=== PATIENT | female | born 1980 | race Caucasian/White ===

== ENCOUNTER 2017-03-16 17:06 | Emergency (ER) | payer BC ==
[~2017-03-16 17:06] MED LIST: Iopamidol 370 76% 100 ML VIAL ONE
[2017-03-16] MEDS ORDERED: Morphine 4 MG/ML Carpuject ONE (18:05)
[2017-03-16] MEDS ORDERED: Ondansetron HCl/PF 4 MG/2 ML Vial ONE ×2 (18:06→19:17)
[2017-03-16 18:08] LABS: #Basophils 0.1 thou/uL (0.0-0.2); #Eosinphils 0.1 thou/uL (0.0-0.7); #Lymphocytes 1.8 thou/uL (1.20-3.40); #Monocytes 0.5 thou/uL (0.11-0.59); #Neutrophils 3.2 thou/uL (1.40-6.50); %Basophils 1.5 % (0.0-1.0); %Eosinophils 2.5 % (0.0-10.0); %Lymphocytes 31.3 % (21.0-51.0); %Monocytes 9.3 % (0.0-10.0); Hematocrit 39.6 % (36.0-47.0); Mean Platelet Volume 10.9 fL (7.4-10.4); Red Blood Cell (RBC) Count 4.45 mill/uL (4.20-5.40); White Blood Cell (WBC) Count 5.7 thou/uL (4.8-10.8)
[2017-03-16 18:16] LABS: Bilirubin Negative (Negative); Blood, Urine Negative (Negative); Glucose, Urine (Dipstick) Negative (Negative); Ketone, Urine Negative (Negative); Nitrite Negative (Negative); PTT 28.7 SEC (22.9-36.1); Protein, Urine (Dipstick) Negative (Neg-Trace); Prothrombin Time 13.2 SEC (12.0-14.7)
[2017-03-16 18:26] LABS: ALT (SGPT) 16 U/L (8-55); AST (SGOT) 14 U/L (5-34); Alkaline Phosphatase 74 U/L (40-150); Anion Gap 13 mmol/L (10-20); BUN (Urea Nitrogen) 17 mg/dL (7.0-18.7); Bilirubin, Total 0.4 mg/dL (0.2-1.2); Calc. Creatinine Clearance 0 mL/min (70-130); Calcium 9.8 mg/dL (7.8-10.44); Carbon Dioxide 25 mmol/L (22-29); Chloride 103 mmol/L (98-107); Estimated GFR-MDRD 72; Globulin 3.9 g/dL (2.4-3.5); Lipase 25 U/L (8-78); Protein, Total 8.2 g/dL (6.0-8.3)
[2017-03-16] MEDS ORDERED: Sodium Chloride 0.9% 100 ML ONE (19:04)
[2017-03-16] MEDS ORDERED: Piperacillin/Tazobactam 3.375 GM VIAL ONE (19:04)
[2017-03-16] MEDS ORDERED: Promethazine HCl 25 MG/ML VIAL ONE (20:46)
--- NOTE | 2017-03-16 22:34 | CT ---
CT ABDOMEN AND PELVIS WITH CONTRAST 03/16/17 COMPARISON: None. HISTORY: Generalized pelvic pain and right lower quadrant abdominal pain for eight days with nausea, vomiting and hematuria last week. TECHNIQUE: Multiple contiguous axial images were obtained in a CT of the abdomen and pelvis with contrast. PO co ntrast was administered. Coronal reformats were performed. FINDINGS: The liver, gallbladder, kidneys, adrenal glands, spleen, and pancreas are unremarkable. No free air, free fluid, or stranding changes are seen in the abdomen or pelvis. The uterus appears to have been removed. There is a hypodensity near the vaginal cuff measuring 2.4 c m in size which may represent a follicle emanating from the left ovary. No abdominal or pelvic lympha denopathy are seen. The large and small bowel are unremarkable. The appendix is normal. The osseous structures, visualized inferior thorax, abdominal wall soft tissues are unremarkable. IMPRESSION: No evidence of acute intra-abdominal/pelvic abnormality. POS: [facility]
== END 2017-03-16 22:00 | disposition home or self-care (01) ==
LOC: SCSER 17:06
DX: R10.2 Pelvic and perineal pain (principal); R11.2 Nausea with vomiting, unspecified; R10.31 Right lower quadrant pain; J45.909 Unspecified asthma, uncomplicated
CPT/HCPCS: 74177; 80053; 81003; 83690; 85025; 85610; 85730; 87040; 96365; 96367; 96375; 96376; J2270; J2405; J2543; J2550; J7050

== ENCOUNTER 2017-05-02 14:05 | Outpatient (CLI) | payer OTHER | END 2017-05-02 14:06 | disposition home or self-care (01) | LOC: BICMAMMO 14:05 | PROVIDERS: ATTEND Obstetrics & Gynecology | DX: N63.10 Unspecified lump in the right breast, unspecified quadrant (principal) | CPT/HCPCS: 77066; G0279 ==

== ENCOUNTER 2017-08-16 23:47 | Inpatient (IN) | payer OTHER ==
[2017-08-16] MEDS ORDERED: EPINEPHrine 1 MG/ML AMP ONE (23:54)
[2017-08-17] MEDS ORDERED: diphenhydrAMINE 50 MG/ML VIAL ONE
[2017-08-17] MEDS ORDERED: methylPREDNISolone Sod Succ/PF 125 MG/2 ML VIAL ONE
[2017-08-17] MEDS ORDERED: Famotidine/PF 20 mg/2ml Vial ONE
[2017-08-17] MEDS ORDERED: Water For Inject, Bacteriostat 30 ML ONE (00:01)
[2017-08-17 00:11] LABS: #Basophils 0.1 thou/uL (0.0-0.2); #Eosinphils 0.3 thou/uL (0.0-0.7); #Lymphocytes 1.8 thou/uL (1.20-3.40); #Monocytes 0.5 thou/uL (0.11-0.59); #Neutrophils 2.5 thou/uL (1.40-6.50); %Basophils 1.1 % (0.0-1.0); %Eosinophils 5.5 % (0.0-10.0); %Lymphocytes 35.1 % (21.0-51.0); %Monocytes 8.9 % (0.0-10.0); %Neutrophils 49.4 % (42.0-75.0); Hemoglobin 12.2 g/dL (12.0-16.0); Mean Corpuscular HGB CONC 35.1 g/dL (32.0-36.0); Mean Corpuscular Hemoglobin 31.7 pg (27.0-31.0); Mean Corpuscular Volume 90.4 fl (81.0-99.0); Mean Platelet Volume 8.9 fL (7.4-10.4); Platelet Count 223 thou/uL (130-400); RBC Distribution Width 10.8 % (11.5-14.5); Red Blood Cell (RBC) Count 3.84 mill/uL (4.20-5.40); White Blood Cell (WBC) Count 5.1 thou/uL (4.8-10.8)
[2017-08-17 00:44] LABS: PTT 34.2 SEC (22.9-36.1)
[2017-08-17 00:45] LABS: D-Dimer Test 0.59 *mcg/mL (0.27-0.43); INR-International Normal Ratio 0.9; Prothrombin Time 12.1 SEC (12.0-14.7)
[2017-08-17 00:49] LABS: ALT (SGPT) 27 U/L (8-55); AST (SGOT) 28 U/L (5-34); Albumin 4.1 g/dL (3.5-5.0); Alkaline Phosphatase 62 U/L (40-150); Anion Gap 16 mmol/L (10-20); BUN (Urea Nitrogen) 5 mg/dL (7.0-18.7); Bilirubin, Total 0.6 mg/dL (0.2-1.2); Calc. Creatinine Clearance 0 mL/min (70-130); Carbon Dioxide 28 mmol/L (22-29); Chloride 103 mmol/L (98-107); Estimated GFR-MDRD 81; Globulin 3.7 g/dL (2.4-3.5); Glucose 82 mg/dL (70-105); Potassium 3.6 mmol/L (3.5-5.1); Protein, Total 7.8 g/dL (6.0-8.3); Sodium 143 mmol/L (136-145)
[2017-08-17 00:55] LABS: CKMB 0.9 ng/mL (0-6.6); Troponin I Less than 0.010 ng/mL (< 0.028)
[2017-08-17] MEDS ORDERED: Sodium Chloride 0.9% 1,000 ML IV SCH (02:29)
[2017-08-17 02:56] VITALS: BMI 30.8
[2017-08-17] MEDS ORDERED: Acetaminophen 325 MG TAB PO PRN (03:36)
[2017-08-17] MEDS ORDERED: Ondansetron HCl/PF 4 MG/2 ML Vial IVP PRN (03:36)
[2017-08-17] MEDS ORDERED: Albuterol Sulfate 1.25 MG/3 ML NEB NEB PRN (03:41)
[2017-08-17] MEDS ORDERED: Docusate 100 MG CAP PO PRN (03:44)
[2017-08-17] MEDS ORDERED: Chloraseptic Spray 180 ml Bottle PO PRN (03:44)
[2017-08-17] MEDS ORDERED: Senokot 8.6 MG TAB PO PRN (03:44)
[2017-08-17] MEDS ORDERED: Bisacodyl 10 MG SUPP PR PRN (03:44)
[2017-08-17] MEDS ORDERED: Milk Of Magnesia 30 ML UDCUP PO PRN (03:44)
[2017-08-17] MEDS ORDERED: Bisacodyl 5 MG TAB PO PRN (03:44)
[2017-08-17] MEDS ORDERED: Morphine 4 MG/ML VIAL SLOW IVP PRN (03:47)
[2017-08-17] MEDS: HYDROcodone/Acetaminophen 5/325 mg Tablet PO PRN ×2 (03:51→09:12)
[2017-08-17] MEDS ORDERED: diphenhydrAMINE 12.5 MG/5 ML UDCUP PO SCH (06:00)
[2017-08-17] MEDS ORDERED: Morphine 10 MG/ML VIAL SLOW IVP PRN (06:45)
[2017-08-17] MEDS ORDERED: Famotidine 20 MG TAB PO SCH (09:00)
[2017-08-17] MEDS ORDERED: Enoxaparin Sodium 30 MG/0.3 ML SYRINGE SC SCH (09:00)
[2017-08-17] MEDS ORDERED: ESTRADIOL TOP SCH (09:00)
[2017-08-17] MEDS ORDERED: Famotidine/PF 20 mg/2ml Vial SLOW IVP SCH (09:00)
--- NOTE | 2017-08-17 09:19 | RAD ---
SINGLE VIEW OF THE CHEST: Comparison: None. History: Shortness of breath. FINDINGS: Single view of the chest shows a normal sized cardiomediastinal silhouette. There is no evidence of c onsolidation, mass, or pleural effusion. The bones are unremarkable. IMPRESSION: No evidence of acute cardiopulmonary disease. POS: [facility]
--- NOTE | 2017-08-17 09:27 | CT ---
PRELIMINARY REPORT/[facility]/EMERGENTY AFTER-HOURS PROCEDURE CT Angiography Chest With Intravenous Contrast CLINICAL HISTORY: 37 years old, female; Dyspnea; discharged from [facility] post op day 3 ex lap and adhesi on removal from complicated hysterectomy in her 20s. 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 Does have HX asthma but states that this feels different. Denies chest pain. TECHNIQUE: Axial computed tomographic angiography images of the chest with intravenous contrast usingpulmonary e mbolism protocol. MIP reconstructed images were created and reviewed. Oblique reformatted images were created and reviewed. CONTRAST: 100 mL of [id number] administered intravenously. COMPARISON: No relevant prior studies available. FINDINGS: Pulmonary arteries: No evidence of pulmonary embolism. Aorta: Normal caliber thoracic aorta without dissection or aneurysm. Lungs: No alveolar infiltrate. Bilateral lower lobe linear parenchymal scarring or subsegmental colla pse / atelectasis. No mass. Pleural space: No pleural fluid collection. No pneumothorax. Heart: No pericardial effusion. No evidence of RV dysfunction. Bones/joints: No acute fracture. No dislocation. Soft tissues: Unremarkable. Lymph nodes: No pathologically enlarged lymph nodes. IMPRESSION: 1. No evidence of pulmonary embolism. 2. No alveolar infiltrate. 3. Bilateral lower lobe linear parenchymal scarring or subsegmental collapse / atelectasis. Thank you for allowing us to participate in the care of your patient. Dictated and Authenticated by: Curry Reddy MD 08/17/2017 2:05 AM Central Time ([place] & [place]) CT ANGIOGRAM OF THE CHEST: History: Post-operative shortness of breath. Comparison: None. Technique: CT angiogram of the chest is performed in the axial plane. 3D reformatted images are submi tted for interpretation. FINDINGS/IMPRESSION: This report is in agreement with the preliminary report by [facility]. No evidence of pulmonary artery embol ism to the level of the segmental arteries. There is scar/atelectasis in the right lower lobe. Additi onal areas of scarring and atelectasis are noted in the left lower lobe. Punctate foci of air in the peritoneum likely due to post op day 3 for ex lap and removal of adhesions. POS: [facility]
--- NOTE | 2017-08-17 10:54 | CT ---
PRELIMINARY REPORT/[facility]/EMERGENTY AFTER-HOURS PROCEDURE CT Neck With Intravenous Contrast CLINICAL HISTORY: 37 years old, female; Dyspnea; discharged from [facility] post op day 3 ex lap and adhesi on removal from complicated hysterectomy in her 20s. 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 Does have HX asthma but states that this feels different. Denies chest pain. TECHNIQUE: Axial computed tomography images of the neck with intravenous contrast. Coronal and sagittal reformatted images were created and reviewed. COMPARISON: No relevant prior studies available. FINDINGS: Oropharynx: Unremarkable. No significant tonsillar enlargement. No peritonsillar abscess. Hypopharynx: Unremarkable. Larynx: Unremarkable. Normal epiglottis. Trachea: Unremarkable. Retropharyngeal space: Unremarkable. Submandibular/parotid glands: Unremarkable. Glands are normal in size. Thyroid: A few scattered small nodules within the thyroid gland. Bones/joints: No acute fracture. Soft tissues: Unremarkable. Vasculature: No acute findings. Lymph nodes: Unremarkable. No lymphadenopathy. Lung apices: Unremarkable as visualized. IMPRESSION: No acute findings. The visualized airway is normal in caliber. Thank you for allowing us to participate in the care of your patient. Dictated and Authenticated by: Curry Reddy MD 08/17/2017 2:13 AM Central Time ([place] & [place]) POST CONTRAST CT SOFT TISSUE NECK: History: Abnormal sensation. Feels like something is stuck in her throat. Comparison: None. Technique: Post contrast soft tissue neck CT is performed in the axial plane. Reformatted images are submitted for interpretation. FINDINGS: This report is in agreement with the preliminary report by [facility]. Aerodigestive tract is patent. No muc osal abnormality. POS: [facility]
[2017-08-17] MEDS ORDERED: Oxymetazoline HCl 0.05% ( 15 ML ) NASAL ONE (11:00)
[2017-08-17 12:49] VITALS: TEMP 98.2
--- NOTE | 2017-08-17 13:04 | PDOC.EVN ---
Event Note - Event Note Event Note: DC SUMMARY #[id number]
--- NOTE | 2017-08-17 19:26 | CON ---
DATE OF CONSULTATION: 08/17/2017 HISTORY OF PRESENT ILLNESS: Ms. Romo is in no distress. She is able to give a very cohesive history and her supported this. Apparently, she recently underwent abdominal surgery. She has a long complicated history regarding hysterectomy, oophorectomy in the past. She has endometriosis and apparently had a tremendous amount of intraabdominal scarring. She laid down flat and last night became stridorous. She was still stridorous when she got to the emergency room and had multiple different medical interventions applied, which included epinephrine, steroids, antihistamines, etc. She is now back to normal. She has never had this happen in the past. She does have a history of reflux disease. She is not hoarse at this time and had no hoarseness leading up to this or prior to this. She denies eating spicy food last night or drinking alcohol. She says she does not smoke or drink. PAST MEDICAL HISTORY: Otherwise unremarkable with regards to the issues of her abdomen, uterus and ovaries. FAMILY HISTORY: Negative for lung disease in early age. SOCIAL HISTORY: Patient states she does not drink or smoke. REVIEW OF SYSTEMS: 10 point review otherwise negative. PHYSICAL EXAMINATION: VITAL SIGNS: She is afebrile, heart rate is 80, respiratory rate is 14, oximetry is 95. GENERAL: She is absolutely in no distress, not hoarse. No stridor. No dyspnea. HEAD AND NECK: Unremarkable. LUNGS: Clear. HEART: Regular rhythm. S1 and S2 are normal. ABDOMEN: Soft and tender as expected with her incision. EXTREMITIES: No clubbing, cyanosis or edema. LABORATORY DATA: White count 5.1, hemoglobin 12.2, platelets 223,000. Electrolytes are normal. IMPRESSION: I suspect this is nocturnal reflux triggering stridor. She should elevate the head of her bed, take antihistamines. Ear, nose and throat surgery has been consulted to evaluate her upper airway, but I suspect. Other than possible changes associated with reflux, there would not be any structural abnormalities. She can be discharged if cleared by ENT. This is 50 minute consult with greater than 50% of the time spent on the unit with coordination of care. REGINALDO
--- NOTE | 2017-08-17 22:40 | DIS ---
DATE OF ADMISSION: 08/17/2017 DATE OF DISCHARGE: 08/17/2017 ADMITTING DIAGNOSES: Asthma, laryngospasm, and abdominal pain and lump in her throat. DISCHARGE DIAGNOSES: Laryngospasm resolved, abdominal pain, resolved, asthma, stable. HOSPITAL COURSE: This is a 35-year-old female who was admitted to Internal Medicine team coming from the ER. The patient apparently had an exploratory laparotomy done in the hospital at the [facility] and was discharged day prior to admission. The patient apparently was discharged home and then was having severe shortness of breath and ability to not breathe as well as feeling like something was st uck in her throat. The patient came to the ER and was admitted to Internal Medicine and was sent to the ICU, evaluated by critical care and ENT. The ENT performed a laryngoscopy and was concluded that the patient likely had a laryngeal spasm. At point in time of discharge, the patient denies any [place], vomiting, diarrhea, constipation, chest pain, fevers or shortness of breath. States that she fe els like she is ready to go back to her baseline, has had a bowel movement while in the hospital as w ell. The patient at this point in time is stable after discussion with the patient and her family th at she would like to go home. DISPOSITION: Home. FOLLOWUP: With PCP and Neurosurgery in 2 weeks. 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 CONDITION: Stable. PROGNOSIS: Good. Followup with PCP and general surgery in 2 weeks as mentioned above. MEDICATIONS: Resume home medication. Case and plan discussed with the patient and family at length. They understand and agree with this p ana.
--- NOTE | 2017-08-22 12:30 | EKG ---
Test Reason : Blood Pressure : / mmHG Vent. Rate : 119 BPM Atrial Rate : 119 BPM P-R Int : 130 ms QRS Dur : 072 ms QT Int : 304 ms P-R-T Axes : 032 025 075 degrees QTc Int : 427 ms Sinus tachycardia Possible Left atrial enlargement Nonspecific ST and T wave abnormality Abnormal ECG Confirmed by LORE MCKINNEY, JANICE ([id number]), research editor LUIS HARDEN ([id number]) on 08/22/2017 12:30:01 PM Referred By: Confirmed By:JANICE TORREZ MD
== END 2017-08-17 14:15 | disposition home or self-care (01) | DRG 156 ==
LOC: SCSER 23:47 → CCU 08-17 01:54
PROVIDERS: ADMIT Internal Medicine; ATTEND Internal Medicine
PROC: 0CJS8ZZ Inspection of Larynx, Via Natural or Artificial Opening Endoscopic (ICD-10-PCS; principal; 2017-08-17)
DX: J38.5 Laryngeal spasm (principal); K21.9 Gastro-esophageal reflux disease without esophagitis
CPT/HCPCS: 70492; 71045; 71275; 80053; 82553; 83880; 84484; 85025; 85379; 85610; 85730; 93005; 96361; 96372; 96374; 96375; A4216; J0171; J1200; J1650; J2270; J2405; J2920; J2930; J7620; S0028

== ENCOUNTER 2018-12-10 15:33 | Emergency (ER) | payer OTHER ==
[2018-12-10 16:13] LABS: Bilirubin Negative (Negative); Blood, Urine Negative (Negative); Clarity Clear (Clear); Glucose, Urine (Dipstick) Negative (Negative); Leukocyte Negative (Negative); Nitrite Negative (Negative); Protein, Urine (Dipstick) Negative (Neg-Trace); Urobilinogen 0.2 mg/dL (Less than 2)
[2018-12-10 16:28] LABS: #Eosinphils 0.2 thou/uL (0.0-0.7); #Lymphocytes 1.6 thou/uL (1.20-3.40); #Monocytes 0.5 thou/uL (0.11-0.59); #Neutrophils 3.6 thou/uL (1.40-6.50); %Basophils 0.7 % (0.0-1.0); %Eosinophils 3.2 % (0.0-10.0); %Lymphocytes 27.1 % (21.0-51.0); %Monocytes 7.9 % (0.0-10.0); %Neutrophils 61.1 % (42.0-75.0); Hemoglobin 13.6 g/dL (12.0-16.0); Mean Corpuscular HGB CONC 33.8 g/dL (32.0-36.0); Mean Corpuscular Hemoglobin 30.5 pg (27.0-31.0); Mean Corpuscular Volume 90.2 fL (78.0-98.0); Mean Platelet Volume 8.8 fL (7.4-10.4); Platelet Count 274 thou/uL (130-400); RBC Distribution Width 12.1 % (11.5-14.5); Red Blood Cell (RBC) Count 4.47 mill/uL (4.20-5.40); White Blood Cell (WBC) Count 5.9 thou/uL (4.8-10.8)
[2018-12-10] MEDS ORDERED: Acetaminophen 500 MG TAB ONE (16:31)
[2018-12-10] MEDS ORDERED: Metoclopramide HCl 10 MG/2 ML VIAL ONE (16:31)
[2018-12-10] MEDS ORDERED: diphenhydrAMINE 50 MG/ML VIAL ONE (16:31)
[2018-12-10 16:37] LABS: BHCG - Serum Negative (NEGATIVE); Pregs Control Background? CLEAR/WHITE (CLR/WHITE); Pregs Control Bar Appear? YES (CONTROL BAR)
[2018-12-10 16:42] LABS: ALT (SGPT) 18 U/L (8-55); AST (SGOT) 14 U/L (5-34); Albumin 4.2 g/dL (3.5-5.0); Alkaline Phosphatase 72 U/L (40-150); Anion Gap 13 mmol/L (10-20); BUN (Urea Nitrogen) 9 mg/dL (7.0-18.7); Bilirubin, Total 0.2 mg/dL (0.2-1.2); Calc. Creatinine Clearance 0 mL/min (70-130); Calcium 9.6 mg/dL (7.8-10.44); Carbon Dioxide 25 mmol/L (22-29); Chloride 107 mmol/L (98-107); Estimated GFR-MDRD 86; Globulin 3.5 g/dL (2.4-3.5); Glucose 103 mg/dL (70-105); Potassium 3.7 mmol/L (3.5-5.1); Protein, Total 7.7 g/dL (6.0-8.3); Sodium 141 mmol/L (136-145)
--- NOTE | 2018-12-10 17:22 | RAD ---
RADIOGRAPH CHEST 2 VIEWS: DATE: 12/10/2018 HISTORY: 38-year-old female with dyspnea and chest pain FINDINGS: The lungs are clear. The cardiomediastinal silhouette and hilar shadows appear normal. There is no pl eural effusion or pneumothorax. No osseous abnormality is identified. IMPRESSION: Normal
[2018-12-10] MEDS ORDERED: methylPREDNISolone Sod Succ/PF 125 MG/2 ML VIAL ONE (17:31)
[2018-12-10] MEDS ORDERED: Ketorolac Tromethamine 30 MG/ML VIAL ONE (17:31)
[2018-12-10 18:51] LABS: Troponin I Less than 0.010 ng/mL (< 0.028)
--- NOTE | 2018-12-10 19:07 | ULT ---
LEFT UPPER EXTREMITY VENOUS ULTRASOUND WITH DOPPLER: HISTORY: Swelling and pain. COMPARISON: None. TECHNIQUE: Chaves-scale, color-flow and Doppler imaging with spectral wave-form analysis was performed of the left upper extremity venous system. FINDINGS: There is compressibility and flow in the internal jugular vein. The subclavian vein is patent. Ther e is compressibility and flow in the axillary vein, basilic vein, cephalic vein, brachial vein, ulnar vein, and radial vein. IMPRESSION: No evidence of thrombus in the left upper extremity deep venous system. POS: [facility]
== END 2018-12-10 19:48 | disposition home or self-care (01) ==
LOC: SCSER 15:33
DX: R07.89 Other chest pain (principal); R22.0 Localized swelling, mass and lump, head; J45.909 Unspecified asthma, uncomplicated; F41.9 Anxiety disorder, unspecified; Z79.899 Other long term (current) drug therapy
CPT/HCPCS: 36415; 71046; 80053; 81003; 83880; 84484; 84703; 85025; 85379; 93005; 96365; 96375; J1200; J1885; J2765; J2930

== ENCOUNTER 2018-12-13 13:43 | Outpatient (CLI) | payer OTHER ==
--- NOTE | 2018-12-13 16:26 | MRI ---
MRI Pelvis W WO Con History: R 10.2. Pelvic pain Comparison: None. Findings: Bones: The SI joints are normal. No marrow infiltrative process. No stress edema. Muscles: Muscle signal and bulk is normal. Intrapelvic soft tissues: Normal. No free fluid. No abnormal enhancing mass. No significant scarring along the vaginal cuff. Impression: Normal examination of the pelvis.
== END 2018-12-13 13:44 | disposition home or self-care (01) ==
LOC: SCSMRI 13:43
PROVIDERS: ATTEND Obstetrics & Gynecology Gynecologic Oncology
DX: R10.2 Pelvic and perineal pain (principal)
CPT/HCPCS: 72197

== ENCOUNTER 2019-04-01 12:59 | Outpatient (CLI) | payer OTHER ==
--- NOTE | 2019-04-01 14:00 | RAD ---
3 views of the sacroiliac joints: 04/01/2019 COMPARISON: None HISTORY: Back pain FINDINGS: No fracture or dislocation. No radiopaque foreign body or subcutaneous gas. No widening of the sacroiliac joints. No sacroiliac joint erosive change. IMPRESSION: No acute findings.
== END 2019-04-01 13:00 | disposition home or self-care (01) ==
LOC: BICRAD 12:59
PROVIDERS: ATTEND Internal Medicine Rheumatology
DX: M54.89 Other dorsalgia (principal)
CPT/HCPCS: 72202

== ENCOUNTER 2020-01-30 09:37 | Outpatient (CLI) | payer OTHER ==
--- NOTE | 2020-01-30 10:44 | MMO ---
Bilateral MAMMO Bilat Diag DDI+AMINATA. CLINICAL HISTORY: Patient is 39 years old and is seen for diagnostic exam and lump or thickening in the left breast at 2 o'clock. The patient has no family history of breast cancer. The patient has no personal history of cancer. VIEWS: The views performed were: bilateral craniocaudal with tomosynthesis; bilateral mediolateral oblique with tomosynthesis; and bilateral mediolateral with tomosynthesis. FILMS COMPARED: The present examination has been compared to prior imaging studies performed at [facility] on 05/02/2017 and 01/30/2020. This study has been interpreted with the assistance of computer-aided detection. MAMMOGRAM FINDINGS: The breasts are extremely dense, which may lower the sensitivity of mammography. No mass is seen in region of the palpable abnormality in the upper outer left breast. Ultrasound shows a small cyst. There are no suspicious masses, suspicious calcifications, or new areas of architectural distortion. IMPRESSION: THERE IS NO MAMMOGRAPHIC EVIDENCE OF MALIGNANCY. A ROUTINE FOLLOW-UP MAMMOGRAM AT AGE 41 IS RECOMMENDED. THE RESULTS OF THIS EXAM WERE SENT TO THE PATIENT. ACR BI-RADS Category 2 - Benign finding MAMMOGRAPHY NOTE: 1. A negative mammogram report should not delay a biopsy if a dominant of clinically suspicious mass is present. 2. Approximately 10% to 15% of breast cancers are not detected by mammography. 3. Adenosis and dense breasts may obscure an underlying neoplasm. Reported by: VERONA SMART MD Electonically Signed: [id number]
--- NOTE | 2020-01-30 12:18 | ULT ---
LIMITED ULTRASOUND LEFT BREAST: Date: 01/30/2020 HISTORY: Focal area of pain and palpable abnormality left breast. COMPARISON: Left breast ultrasound on 05/02/2017. FINDINGS: There is a circumscribed approximately 5.0 mm anechoic structure seen within the left breast 2 o'cloc k position which was also seen on the prior exam, but previously measured approximately 4.0 mm. Findi ngs are likely related to mild enlargement of a cyst. On real-time imaging, a few additional very tin y anechoic structures are seen also compatible with additional small cysts in the outer left breast. No discrete solid mass is visualized. IMPRESSION: 1. BI-RADS Category 2 - Benign findings. Routine annual mammographic screening is recommended. 2. If patient's symptoms do not resolve or palpable abnormality enlarges, additional imaging can be performed. POS: [facility]
== END 2020-01-30 09:38 | disposition home or self-care (01) ==
LOC: BICMAMMO 09:37
PROVIDERS: ATTEND Obstetrics & Gynecology
DX: N64.4 Mastodynia (principal)
CPT/HCPCS: 77066; G0279